=== PATIENT | female | born 1970 | race Caucasian/White ===

== ENCOUNTER → 2018-05-24 | Day surgery (SDC) | payer OTHER ==
[2018-05-21 15:49] LABS: BASOPHILS % 0.6 % (0.0-1.0); EOSINOPHILS # (AUTO) 0.1 (0.0-0.4); EOSINOPHILS % 1.6 % (0.0-6.0); HEMATOCRIT 44.1 % (34.2-44.1); HEMOGLOBIN 15.2 g/dL (12.0-16.0); LYMPHOCYTES # (AUTO) 2.4 (1.0-3.2); LYMPHOCYTES % 34.6 % (18.0-39.1); MEAN CORPUSCULAR HGB CONC 34.5 g/dL (31-35); MONOCYTES # (AUTO) 0.5 (0.2-0.8); MONOCYTES % 7.3 % (4.4-11.3); NEUTROPHILS # (AUTO) 3.8 (2.1-6.9); NEUTROPHILS % 55.8 % (38.7-80.0); PLATELET COUNT 294 x10e3/uL (140-360); RED CELL DISTRIBUTION WIDTH 12.3 % (11.7-14.4)
[2018-05-21 16:10] LABS: ANION GAP 13.7 mmol/L (8-16); BLOOD UREA NITROGEN 10 mg/dL (7-26); BUN/CREATININE RATIO 12 (6-25); CALCIUM 9.8 mg/dL (8.4-10.2); CARBON DIOXIDE 23 mmol/L (22-29); CHLORIDE 102 mmol/L (98-107); CREATININE, SERUM 0.85 mg/dL (0.57-1.11); EST GLOMERULAR FILTRATION RATE > 60 ML/MIN (60-); GLUCOSE 94 mg/dL (74-118); POTASSIUM 3.7 mmol/L (3.5-5.1); SODIUM 135 mmol/L (136-145)
--- NOTE | 2018-05-21 16:38 | Diagnostic Imaging Report ---
EXAMINATION: CHEST 2 VIEWS COMPARISON: None FINDINGS: TUBES and LINES: None. LUNGS: Lungs are well inflated. Lungs are clear. There is no evidence of pneumonia or pulmonary edema. PLEURA: No pleural effusion or pneumothorax. HEART AND MEDIASTINUM: The cardiomediastinal silhouette is unremarkable. BONES AND SOFT TISSUES: No acute osseous lesion. Soft tissues are unremarkable. UPPER ABDOMEN: No free air under the diaphragm. IMPRESSION: No acute radiographic abnormality. Signed by: Dr. Rosie Madera MD on 05/21/2018 4:34 PM
[~2018-05-24] MED LIST: BUPIVACAINE HCL 0.5% 10ML MPF VIAL INJ ONE; CEFAZOLIN SOD 2 GM/D5W 50ML 50 ML IV ONE; DEXAMETHASONE SOD PHOS INJ 4 MG/ML VIAL ONE; FENTANYL CITRATE/PF 100MCG/2 ML INJ ONE; KETOROLAC TROMETHAMINE 30 MG/ML VIAL ONE; LIDOCAINE HCL 2% LOCAL INJ 5 ML SDV VIAL INJ ONE; MAGNESIUM OXID400 MG PO; MIDAZOLAM HCL 2 MG/2 ML VIAL ONE; MULTI-VITAMIN1 EACH PO; MUPIROCIN 2% OINT 22 GM TUBE ONE; NOPAL; ONDANSETRON HCL INJ 2 MG/ML VIAL ONE; PROBIOTIC 4X C1 EACH PO; PROPOFOL IV EMULSION 10 MG/ML 20 ML VIAL ONE; SEVOFLURANE INHAL SOLN 250 ML PEN BTL ONE; THYROID COMPLEX PO; VIT D3; [UNRECOGNIZED DRUG - CODE]; [UNRECOGNIZED DRUG - OTHER]; [UNRECOGNIZED DRUG - OTHER]; [UNRECOGNIZED DRUG - OTHER]; [UNRECOGNIZED DRUG - OTHER]; [UNRECOGNIZED DRUG - OTHER]
--- OUTSIDE RECORDS SUMMARY | 2018-05-24 06:03 | XMS REPORT | Encounter Summary ---
Author Organization Unknown Address [address] [place] [address] Phone [phone] Reason for Visit Medical Complaint; sore throat, ear pain, cough and chest congestion x 2 weeks Instructions 1. Acute sinusitis Augmentin 875 mg-125 mg tablet fluticasone 50 mcg/actuation nasal spray,suspension Tessalon Perles 100 mg capsule rapid strep group A, throat sinusitis: care instructions Discussion Note F/U with your PCP within 3-5 days if s/s continue or worsen. handout that was given and reviewed and pt verbalized understanding. Plan of Care Patient Instructions Take charge of your health handout given and discussed. Reminders Provider Appointments None recorded. Lab Rapid Strep Group a, Throat 04/24/2016 [facility] Referral None recorded. Procedures None recorded. Surgeries None recorded. Imaging None recorded. Medications Name Start Date Augmentin 875 mg-125 mg tablet Take 1 tablet every 12 hours by oral route with meals for 10 days. cefdinir 300 mg capsule fluticasone 50 mcg/actuation nasal spray,suspension Inhale 2 sprays every day by intranasal route as directed. Tessalon Perles 100 mg capsule Take 1 capsule 3 times a day by oral route as needed for 10 days. Medications Administered None recorded. Vitals Height Weight BMI Blood Pressure 5 ft 4 in 195 lbs 33.5 120/84 Lab Results Date Name Result Description Value Range Status Rapid Strep Group a, Throat Result negative Swab Location Left and Right tonsillar pillars Allergies Name Reaction Severity Onset NKDA Problems Name Status Onset Date Source Acute Sinusitis Active Encounter Sinusitis Active Encounter Procedures Date Name Performed by Hysterectomy Information not available Vaccine List None recorded. Social History Smoking Status Never Smoker Past Encounters 04/24/2016 Acute Sinusitis Shruti Madera [employer] WRITER: [id number] [place] [address], Ph. History of Present Illness Cmewg-Welxpomnen-Atlrhyf Reported By: Patient HPI: Location: head/sinuses, throat. Quality: sore throat, colored phlegm, nasal/sinus congestion. Duration: 14days. Severity: moderate. Context: no foreign travel, non-smoker, sick contact. Modifying factors: OTC medication. Associated Symptoms: no shortness of breath, no wheezing, no change in number of pillows needed to sleep at night, no sweats, no significant weight gain, no significant weight loss, no vomiting, no diarrhea, no rash, no nausea, green sputum, morning cough, sore throat Review of Systems Basic Reported By: Patient Constitutional: Constitutional: no fever Eyes: Eyes: no eye complaints Hwfg-Dizg-Rpmwc-Throat: Ears: ear pain. Nose: nose/sinus problems. Mouth/Throat: no bleeding gums, no mouth complaints, no teeth problems, sore throat Cardiovascular: Cardiovascular: no chest pain, no shortness of breath, no known heart murmur Respiratory: Respiratory: no wheezing, no shortness of breath, cough Musculoskeletal: Musculoskeletal: no muscle aches, no muscle weakness, no arthralgias/joint pain, no back pain Skin: Skin: no abnormal / changing mole, no jaundice, no rashes Neurologic: Neurologic: no loss of consciousness, no weakness, no numbness, no seizures, no dizziness, headache Physical Exam Adult Basic, Adult Female Complete Constitutional: General Appearance: healthy-appearing, well-nourished, well-developed. Level of Distress: NAD. Ambulation: ambulating normally Psychiatric: Mental Status: active and alert. Orientation: to time, to place, to person Eyes: Lids and Conjunctivae: non-injected, no discharge, no pallor. Sclerae: non-icteric Gjp-Nlip-Gbfmh-Throat: Ears: no lesions on external ear, no outer ear tenderness, EACs clear, TMs clear. Hearing: no hearing loss. Nose: no lesions on external nose, nares patent, no septal deviation, nasal passages clear, sinus tenderness, nasal discharge--rhinorrhea, post nasal drip. Lips, Teeth, and Gums: no mouth or lip ulcers, no bleeding gums, normal dentition. Oropharynx: moist mucous membranes, no exudates, tonsils not enlarged, erythema Neck: Neck: supple, trachea midline. Lymph Nodes: anterior cervical LAD. Thyroid: no enlargement, non-tender, no nodules Lungs: Respiratory effort: no dyspnea, no tachypnea, no use of accessory muscles, no intercostal retractions. Auscultation: breath sounds normal Cardiovascular: Heart Auscultation: RRR, no murmurs Musculoskeletal:: Motor Strength and Tone: normal motor strength, normal tone. Extremities: no cyanosis, no edema Neurologic: Gait and Station: normal gait, normal station Skin: Inspection and palpation: no rash, no lesions, no ulcer, no abnormal nevi, no induration, no nodules, good turgor, no jaundice
--- OUTSIDE RECORDS SUMMARY | 2018-05-24 06:03 | XMS REPORT ---
Author Author [facility] Address Unknown Phone Unavailable Care Team Providers Care Director Women Name Role Phone LASHANDA DUNCAN Unavailable Unavailable Problems This patient has no known problems. Allergies, Adverse Reactions, Alerts This patient has no known allergies or adverse reactions. Medications This patient has no known medications. Results Test Description Test Time Test Comments Text Results Atomic Results Result Comments CHEST 2 VIEWS 2018-05-21 16:28:00 [place] [address] Patient Name: BRANDI BARAKAT MR #: [id number] : 1970 Age/Sex: 47/F Req #: [id number] Adm Physician: Ordered by: LASHANDA DUNCAN DPM Report #: [id number] Location: OR Room/Bed: Procedure: [id number] DX/CHEST 2 VIEWS Exam Date: Exam Time: REPORT STATUS: Signed EXAMINATION: CHEST 2 VIEWS COMPARISON: None FINDINGS: TUBES and LINES: None. LUNGS: Lungs are well inflated. Lungs are clear. There is no evidence of pneumonia or pulmonary edema. PLEURA: No pleural effusion or pneumothorax. HEART AND MEDIASTINUM: The cardiomediastinal silhouette is unremarkable. BONES AND SOFT TISSUES: No acute osseous lesion. Soft tissues are unremarkable. UPPER ABDOMEN: No free air under the diaphragm. IMPRESSION: No acute radiographic abnormality. Signed by: Dr. Johnny Calderón MD on 05/21/2018 4:34 PM Dictated By: JOHNNY CALDERÓN MD [id number] Transcribed By: ANA MARIA on 05/21/18 1630 COPY TO: LASHANDA DUNCAN DPM
--- OUTSIDE RECORDS SUMMARY | 2018-05-24 06:03 | XMS REPORT | Encounter Summary ---
Author Organization Unknown Address [address] [place] [id number] Phone [phone] Reason for Visit Medical Complaint; congestion, bilateral ear pain, congestion and sore throat Instructions 1. Acute sinusitis rapid strep group A, throat 2. Acute otitis media amoxicillin 875 mg tablet Medrol (Gonzales) 4 mg tablets in a dose pack Discussion Note take medications as prescribed.. sudafed.. warm compress over sinuses to help promote drainage... lozenges and salt water gargles as needed for sore throat.. follow up with your pcp in 5-7days, sooner for worsening symptoms Patient educational handouts: No information available. Plan of Care Reminders Provider Appointments None recorded. Lab Rapid Strep Group a, Throat 07/04/2016 [facility] Referral None recorded. Procedures None recorded. Surgeries None recorded. Imaging None recorded. Medications Name Start Date amoxicillin 875 mg tablet Take 1 tablet every 12 hours by oral route for 7 days. Medrol (Gonzales) 4 mg tablets in a dose pack Take as directed with food Medications Administered None recorded. Vitals Height Weight BMI Blood Pressure 5 ft 4 in 190 lbs 32.6 128/74 Lab Results Date Name Result Description Value Range Status Rapid Strep Group a, Throat Result negative Swab Location Left and Right tonsillar pillars Allergies Name Reaction Severity Onset NKDA Problems Name Status Onset Date Source Acute Sinusitis Active Encounter Sinusitis Active Encounter Procedures Date Name Performed by Hysterectomy Information not available Vaccine List None recorded. Social History Smoking Status Never Smoker Past Encounters 07/04/2016 Acute Sinusitis; Acute Otitis Media Data FRANCES Crow: [address] [address], Ph. History of Present Illness Rgzdd-Bkwxhvtuwx-Eyttbce Reported By: Patient HPI: Location: head/sinuses, throat. Quality: sore throat, nasal/sinus congestion. Duration: 5days. Severity: moderate. Onset/Timing: gradual. Context: sick contact; recent air travel. Modifying factors: OTC medication. Associated Symptoms: no sputum production, no shortness of breath, no wheezing, no change in number of pillows needed to sleep at night, no sweats, no significant weight gain, no significant weight loss, no morning cough, no sore throat, no vomiting, no diarrhea, no rash, no nausea, no fever, no muscle aches, no headache Notes: ear pain/pressure Review of Systems Basic Reported By: Patient Constitutional: Constitutional: no fever Eyes: Eyes: no eye complaints Dqgs-Wtfa-Wddib-Throat: Ears: ear pain. Nose: nose/sinus problems. Mouth/Throat: no bleeding gums, no mouth complaints, no teeth problems, sore throat Cardiovascular: Cardiovascular: no chest pain, no shortness of breath, no known heart murmur Respiratory: Respiratory: no cough, no wheezing, no shortness of breath Gastrointestinal: Gastrointestinal: no abdominal pain, no vomiting / diarrhea Genitourinary: Genitourinary: no urinary complaints, no discharge Musculoskeletal: Musculoskeletal: no muscle aches, no muscle weakness, no arthralgias/joint pain, no back pain Skin: Skin: no abnormal / changing mole, no jaundice, no rashes Neurologic: Neurologic: no loss of consciousness, no weakness, no numbness, no seizures, no dizziness, no headaches Physical Exam Adult Basic, Adult Female Complete Constitutional: General Appearance: healthy-appearing, well-nourished, well-developed. Level of Distress: NAD. Ambulation: ambulating normally Psychiatric: Mental Status: active and alert. Orientation: to time, to place, to person Eyes: Lids and Conjunctivae: non-injected, no discharge, no pallor Vdz-Edhg-Deuhs-Throat: Ears: no lesions on external ear, no outer ear tenderness, EACs clear, TM erythematous, middle ear fluid. Nose: no lesions on external nose, nares patent, no septal deviation, nasal passages clear, sinus tenderness, nasal discharge--rhinorrhea. Lips, Teeth, and Gums: no mouth or lip ulcers, no bleeding gums, normal dentition. Oropharynx: moist mucous membranes, no erythema, no exudates, tonsils not enlarged Neck: Lymph Nodes: anterior cervical LAD Lungs: Respiratory effort: no dyspnea, no tachypnea, no use of accessory muscles, no intercostal retractions. Auscultation: breath sounds normal Cardiovascular: Heart Auscultation: RRR, no murmurs Musculoskeletal:: Motor Strength and Tone: normal motor strength, normal tone Neurologic: Gait and Station: normal gait, normal station Skin: Inspection and palpation: no rash, no lesions, no ulcer, no abnormal nevi, no induration, no nodules, no jaundice; on visible skin
--- OUTSIDE RECORDS SUMMARY | 2018-05-24 06:03 | XMS REPORT | Encounter Summary ---
Author Organization Unknown Address [address] [place] [address] Phone [phone] Reason for Visit Medical Complaint Instructions 1. Acute urinary tract infection Macrobid 100 mg capsule Pyridium 200 mg tablet culture, urine urinary tract infection in women: care instructions Discussion Note: None recorded. Plan of Care Patient Instructions If symtoms get worse or no improvement, call PCP. Reminders Provider Appointments None recorded. Lab Culture, Urine 04/05/2017 [facility] Referral None recorded. Procedures None recorded. Surgeries None recorded. Imaging None recorded. Medications Name Start Date amoxicillin 875 mg tablet TK 1 T PO Q 12 H FOR 7 DAYS azithromycin 250 mg tablet doxepin 5 % topical cream fluconazole 150 mg tablet TK 1 T PO ONCE AND THEN REPEAT IN 72 H IF NEEDED lidocaine 5 % topical ointment Macrobid 100 mg capsule Take 1 capsule every 12 hours by oral route as directed for 7 days. methylprednisolone 4 mg tablets in a dose pack TK UTD ON PACKAGE Pyridium 200 mg tablet Take 1 tablet 3 times a day by oral route as directed for 2 days. Medications Administered None recorded. Vitals Height Blood Pressure 5 ft 4 in 123/77 mm[Hg] Lab Results None recorded. Allergies Code Code System Name Reaction Severity Status Onset NKDA Problems Name Status Onset Date Source Acute Sinusitis Active Encounter Sinusitis Active Encounter Procedures Date Name Performed by Hysterectomy Information not available Vaccine List None recorded. Social History Smoking Status Never Smoker Past Encounters 04/05/2017 Acute Urinary Tract Infection KALEB Herron-C: [address] [place] [address], Ph. History of Present Illness Wwkcgv-RTW-Atapjsu Reported By: Patient HPI: Location: radiation to back, abdomen. Quality: pain, dull, aching. Context: no known exposure to STD, no prior history of STDs, sexually active. Modifying factors OTC medication. Associated Symptoms: no jaundice, no blood in the urine, no blisters on genitals, no rash on genitals, no muscle aches, no headache, flank pain, pain during urination, burning sensation during urination, urgency, hesitancy, urinary frequency, feeling of incomplete emptying of bladder Note:46 yr female with urinary complaints x1 day Review of Systems Basic Reported By: Patient Constitutional: Constitutional: no fever Eyes: Eyes: no eye complaints Lzjm-Phca-Sumty-Throat: Ears: no ear complaints. Nose: no nose/sinus problems. Mouth/Throat: no sore throat Cardiovascular: Cardiovascular: no chest pain, no shortness of breath Respiratory: Respiratory: no cough, no wheezing Gastrointestinal: Gastrointestinal: no abdominal pain, no vomiting / diarrhea Genitourinary: Genitourinary: difficulty urinating, dysuria, urinary urgency Physical Exam Adult Basic, Adult Female Complete Reported By: Patient Constitutional: General Appearance: healthy-appearing, well-nourished, well-developed. Level of Distress: NAD. Ambulation: ambulating normally Psychiatric: Mental Status: active and alert. Orientation: to time, to place, to person Eyes: Lids and Conjunctivae: non-injected, no discharge Zzj-Fsvm-Ajbyl-Throat: Ears: no lesions on external ear, no outer ear tenderness, EACs clear, TMs clear. Hearing: no hearing loss. Nose: no lesions on external nose, nares patent, no septal deviation, nasal passages clear, no sinus tenderness, no nasal discharge. Lips, Teeth, and Gums: no mouth or lip ulcers, no bleeding gums, normal dentition. Oropharynx: moist mucous membranes, no erythema, no exudates, tonsils not enlarged Lungs: Auscultation: breath sounds normal Cardiovascular: Heart Auscultation: RRR Abdomen: Bowel Sounds: normal. Inspection and Palpation: soft, non-distended, no guarding, no rebound tenderness, no masses, no CVA tenderness, suprapubic tenderness. Liver: non-tender. Spleen: non-tender Female : External genitalia: normal, no lesions, no rash; per patient. Vagina: moist mucosa, no discharge; per patient
[2018-05-24 10:05] VITALS: BP 128/81
--- NOTE | 2018-05-31 15:06 | Operative Report ---
DATE OF PROCEDURE: May 24, 2018 PREOPERATIVE DIAGNOSIS: Hallux abductovalgus deformity, left foot. POSTOPERATIVE DIAGNOSIS: Hallux abductovalgus deformity, left foot. TITLE OF OPERATION: A modified Conner bunionectomy of the left foot. ANESTHESIA: General endotracheal. HEMOSTASIS: A left thigh tourniquet at 350 mmHg. PROCEDURE IN DETAIL: The patient was taken to the operating room in a mildly sedated state and placed upon the operating table in the supine position. Following induction of general anesthetic, the left lower extremity was elevated to 60 degrees to exsanguinate before inflating the pneumatic thigh tourniquet to 350 mmHg for hemostasis. Left lower extremity was then placed upon the operating table prior to performing the following procedure: Modified Conner bunionectomy of the left foot. An approximately 6-cm dorsal linear incision was made across the dorsal medial aspect of the 1st metatarsophalangeal joint of the left foot. The incision was deepened via sharp and blunt dissection down to the level of the dorsal capsular structure. Care was taken to identify and retract all vital structures encountered. The head of the 1st metatarsal was delivered into the surgical site and remodeled utilizing the oscillating saw. The conjoined tendon of the adductor hallucis muscle was then identified and tenotomized. Gdtrkgu-usa-riodwll V osteotomy was placed with the apex distally and base proximally to allow for relative shift lateralward of the head of the more proximal segment, which was then impacted and stabilized with 2 cortical bone screws. The medial eminence was further remodeled with an oscillating saw, rotary bur. The area of surgery was irrigated with copious amounts of sterile saline solution. Deep closure with 3-0 Vicryl and subcutaneous closure and 4-0 Vicryl and skin closure with 4-0 Prolene. The areas of surgery were blocked with 0.5 Marcaine, Decadron [place]. The appropriate mildly compressive dressings were applied to the left foot. The release of the pneumatic thigh tourniquet showed a normal hyperemic flush to all digits of the left foot, and the patient left the operating room with vital signs stable, in apparent satisfactory condition, having tolerated both anesthetic and procedure very well. Job#: [id number]
== END | disposition home or self-care (01) ==
LOC: OR 06:01
PROVIDERS: ATTEND Podiatrist Foot Surgery
DX: M20.12 Hallux valgus (acquired), left foot (principal); R00.1 Bradycardia, unspecified; Z01.810 Encounter for preprocedural cardiovascular examination; Z01.812 Encounter for preprocedural laboratory examination; Z01.818 Encounter for other preprocedural examination
CPT/HCPCS: 28296; 36415; 71046; 80048; 85025; 93005; C1713; J0690; J1100; J1885; J2001; J2250; J2405; J2704; Q4100; 76001